=== PATIENT | female | born 1930 | race Caucasian/White ===

== ENCOUNTER 2016-05-27 21:53 | Inpatient (IN) | payer OTHER ==
[~2016-05-27] VITALS: Ht 152.4 cm; Wt 76.3 kg
--- NOTE | ~2016-05-27 | EKG ---
[place] [address] [facility] [place] [address] ELECTROCARDIOGRAM REPORT Name: CLAUS GARVEY Room #: 460-P ADM IN M.R.#: [id number] Admission: 05/27/16 Attend Phys: Elizabeth Miller MD Discharge: Date of : 32 Report #: [id number] THIS REPORT FOR: //name// [facility] ED Test Date: 2016-05-27 Test Time: 22:27:38 Pat Name: CLAUS GARVEY Department: Room: [facility] Gender: F Glaze Maker: [id number] : 1930 Requested By: Carla Bui Order Number: [id number] MD: Pj Freeman Measurements Intervals [place] Rate: 94 P: 141 VT: 161 QRS: -21 QRSD: 122 T: 154 QT: 351 QTc: 439 Interpretive Statements Sinus or ectopic atrial rhythm Left bundle branch block Compared to ECG 12/02/2015 12:24:38 probable limb lead reversal is now present Electronically Signed On 05-29-2016 9:04:31 [employer]RNAMENTAL MET[employer] WORK[employer] by Pj Freeman [email or web address] <ELECTRONICALLY SIGNED> By: Pj Freeman MD, [facility] 05/29/16 0904 26 26 Pj Freeman MD, [facility] /EPI
--- NOTE | ~2016-05-27 | H ---
[facility] [place] [address] HISTORY AND PHYSICAL Name: CLAUS GARVEY Room #: 460-P ADM IN M.R.#: [id number] Admission: 05/27/16 Attend Phys: Elizabeth Miller MD Discharge: Date of : 31 Report #: [id number] THIS REPORT FOR: //name// CC: Elizabeth Miller DATE OF SERVICE: 05/28/2016 CHIEF COMPLAINT: Altered mental status and respiratory distress. HISTORY OF PRESENT ILLNESS: The patient is an 85-year-old female who resides at [facility]. She has multiple medical issues including longstanding diabetes mellitus type 2, hypertension and dementia. Several days prior to admission, staff reported that she had not been eating well and we had to decrease her insulin. On the day of admission, she reportedly had decreased level of consciousness and hypoglycemia. She also had some rapid respirations. Given clinical findings, she was sent to [facility] for evaluation. In the emergency department, she was noted to be hypoglycemic with continued altered mental status and clinical findings of pneumonia with respiratory failure. She required BiPAP. She was given glucose and given IV antibiotics and admitted for further medical management. Since her arrival to the floor, she was given dextrose intravenously and her blood sugars are better at this time. PAST MEDICAL HISTORY: Diabetes mellitus type 2, chronic kidney disease stage 3, coronary artery disease with history of myocardial infarction, oropharyngeal dysphagia requiring pureed diet and honey thickened liquids, anemia of chronic disease, vitamin D deficiency, Alzheimer's dementia, constipation and hypothyroidism. ALLERGIES: No known drug allergies. MEDICATIONS: Actos 15 mg daily; aspirin 81 mg daily; atenolol 50 mg daily; Depakote 125 mg daily and 250 mg at bedtime; MiraLax 17 grams mixed in 8 ounces of water twice a day; Humulin 70/30, she was initially receiving 100 units in the morning and 25 units in the evening; ferrous sulfate 325 mg b.i.d.; Lasix 40 mg daily; Synthroid 88 mcg daily; vitamin D 50,000 units p.o. once a month. REVIEW OF SYSTEMS: Cannot be elicited at this time, however, she is well known to me. At baseline, she is able to feed herself. She requires assistance to transfer from bed to chair. She gets about the facility in a wheelchair. She is incontinent of bowel and bladder. She is forgetful due to her underlying dementia. She has had no problems with chest pains. Otherwise, respiratory symptoms as per history of present illness. PHYSICAL EXAMINATION: GENERAL: The patient is an elderly female [place] [address] HISTORY AND PHYSICAL Name: CLAUS GARVEY Room #: 460-P [facility] IN M.R.#: [id number] Admission: 05/27/16 Attend Phys: Elizabeth Miller MD Discharge: Date of : 31 Report #: [id number] machine. She moves all extremities at this time and tries to resist my exam; however, she does not obey commands. HEENT: Head is normocephalic, atraumatic. Pupils are reactive. Extraocular muscles were not assessed. Oropharynx is moist. NECK: Supple. Trachea midline. LUNGS: With bibasilar crackles. CARDIOVASCULAR: Regular rate and rhythm. ABDOMEN: Soft, nontender, nondistended with normoactive bowel sounds. SKIN: Warm and dry. Turgor adequate. LYMPHATICS: No cervical or axillary lymphadenopathy. NEUROLOGIC: She is lying in bed and her eyes closed, but moves upper extremities as she tries to resist exam and she has no other gross focal deficits. MUSCULOSKELETAL: Reveals equal and symmetric strength bilateral upper extremities and lower extremities. LABORATORY DATA: Pertinent labs include a BUN of 74, creatinine of 2.0, calcium 10.2, direct bilirubin 10.4, albumin 2.6. WBC is 11.9, ____ WBC reveals polys 84%, lymphocytes 12%. Urinalysis shows protein 2+, blood 2+, leukocytes 3+, squamous epithelial moderate, wbc's many, rbc's few, bacteria many. Arterial blood gas on nonrebreather reveals pH of 7.45, pCO2 of 29, pO2 of 54, oxygen saturation of 90%. Chest x-ray reveals developing bibasilar pneumonitis. CT scan of the head reveals no acute pathology, but noted diffuse moderate atrophy. ASSESSMENT: 1. Severe sepsis in patient who has leukocytosis, hypotension, lactic acidosis and toxic encephalopathy. 2. Acute respiratory failure. 3. Healthcare-acquired pneumonia. 4. Shock kidney with acute kidney injury. 5. Urinary tract infection. 6. Diabetes mellitus type 2. 7. Coronary artery disease with history of myocardial infarction. 8. Oropharyngeal dysphagia requiring pureed diet, honey thickened liquids prior to acute illness. 9. Anemia of chronic disease. 10. Vitamin D deficiency. 11. Alzheimer's dementia. 12. Hypothyroidism. PLAN: Admission to telemetry floor. We will consult pulmonary for management of BiPAP. We will continue vancomycin and Zosyn. We will order SCDs for DVT prophylaxis as well as IV famotidine for GI prophylaxis. She will need to be seen by speech therapy to determine a safe diet once she is more alert. Note, her daughter/durable power of floor coverings salesperson is at bedside. All questions were [address] [address] HISTORY AND PHYSICAL Name: CLAUS GARVEY Room #: 460-P ADM IN .R.#: [id number] Admission: 05/27/16 Attend Phys: Elizabeth Miller MD Discharge: Date of : 31 Report #: [id number] answered and confirmed. CODE STATUS: DNR established outside the hospital. <ELECTRONICALLY SIGNED> By: Elizabeth Miller MD 06/05/16 1732 1521 1615 Elizabeth Miller MD /nt
--- NOTE | ~2016-05-27 | HC ---
[facility] [place] [address] CONSULTATION Name: CLAUS GARVEY Room #: 460-P ADM IN M.R.#: [id number] Admission: 05/27/16 Attend Phys: Elizabeth Miller MD Discharge: Date of : 31 Report #: [id number] THIS REPORT FOR: //name// CC: Elizabeth Tsai MD REFERRING PHYSICIAN: Dr. Elizabeth Miller. REASON FOR REFERRAL: Acute respiratory failure. HISTORY OF PRESENT ILLNESS: The patient is an 85-year-old white female who was brought to the Emergency Room with altered mental status. She was found to be hypoglycemic. Chest x-ray revealed right-sided infiltrates. A pulmonary consultation was requested. [facility]. She has progressive Alzheimer's dementia. She was last hospitalized in 2013 for leg pain. She was found to have anasarca, bilateral pleural effusion along with acute kidney injury. The patient is primarily bedridden. She mourns when she is moved. The patient is currently on noninvasive ventilation. Her saturation is adequate on this setting. Otherwise, history is limited as the patient is not able to provide history. PAST MEDICAL HISTORY: Is remarkable for Alzheimer's dementia, generalized debility, weakness, diabetes mellitus type 2, hypertension, gastroesophageal reflux disease, hypothyroidism, atrial fibrillation, gastroesophageal reflux disease, past history of urinary tract infections, glaucoma. PAST SURGICAL HISTORY: None noted. ALLERGIES: None to medications. MEDICATIONS: From the prison are reviewed. This includes ciprofloxacin, Synthroid, Actos, aspirin, vitamin D supplements, Tenormin, insulin supplements, Xalatan eyedrops and Lasix. FAMILY HISTORY: Noncontributory. SOCIAL HISTORY: The patient resides at [facility]. There is no history of tobacco or alcohol use. Medical directive, she is a DNR. She has family who lives in town. REVIEW OF SYSTEMS: Deferred as the patient is not able to provide much answers given progressive dementia. [facility] [address] [place] [address] CONSULTATION Name: CLAUS GARVEY Room #: 460-P [facility] IN ..#: [id number] Admission: 05/27/16 Attend Phys: Elizabeth Miller MD Discharge: Date of : 31 Report #: [id number] PHYSICAL EXAMINATION: GENERAL: She is awake in moderate distress, while being removed. She is tolerating noninvasive ventilation. VITAL SIGNS: Temperature is 98 degrees Fahrenheit, pulse is 80, respiratory rate is 22, blood pressure is 120/52 mmHg, saturation 100%. HEENT: Normocephalic, atraumatic. NECK: Supple without any lymphadenopathy or thyromegaly. CHEST: Breath sounds are fair, coarse breath sounds bilaterally. Few scattered crackles in the bases. CARDIOVASCULAR: Normal S1, S2. Heart sounds are distant. No obvious murmurs or gallop. Pulses are 2+/4 positive bilaterally. BREASTS: Exam deferred. ABDOMEN: Soft, no masses felt. GENITOURINARY: Deferred. RECTAL: Deferred. EXTREMITIES: No cyanosis, clubbing, edema. LABORATORY DATA: Chest x-ray shows right lower lobe infiltrates. CT head shows diffuse moderate atrophy, otherwise unremarkable. Electrolytes: Sodium 138, potassium 4.4, chloride 101, CO2 is 25, BUN is 74, creatinine is 2.0, glucose is 72, patient's baseline creatinine is around 2. WBC is 11,900, hemoglobin is 19.9. No significant bandemia. Platelets are normal. Albumin 2.6. Arterial blood gas revealed pH 7.45, pCO2 of 28, pO2 of 54. IMPRESSION: 1. Acute hypoxic respiratory failure in this 85-year-old white female. Chest x-ray revealed right lower lobe infiltrates. Pneumonia is suspected. Nosocomial pneumonia should be considered. The patient is also at risk for possible aspiration pneumonia. 2. Chronic kidney disease. 3. Protein calorie malnutrition, severe with albumin 2.6. 4. Diabetes mellitus type 2. 5. Progressive Alzheimer's dementia. 6. Gastroesophageal reflux disease. 7. Hypertension. 8. Hypothyroidism. 9. History of atrial fibrillation with current EKG showing left bundle branch block without evidence of atrial fibrillation. 10. Progressive debility and weakness. RECOMMENDATION: Agree with current treatment plans including broad spectrum antibiotics to cover for nosocomial infections and possible aspiration pneumonia. DVT and GI prophylaxis will be addressed. We will continue noninvasive ventilation for now. Wean O2 for saturation 90%. If, however, the patient appears to be suffering given the code status, I would recommend comfort measures with morphine. [address] [address] CONSULTATION Name: MARECLAUS M Room #: 460-P [facility] IN M.R.#: [id number] Admission: 05/27/16 Attend Phys: Elizabeth Miller MD Discharge: Date of : 31 Report #: [id number] We will complete approximately a 7-10-day course of antibiotics. We will need to address nutritional status over the course of the next several days. If the patient remains on noninvasive ventilation, we will need to consider either TPN or PPN. Thank you for this consultation. <ELECTRONICALLY SIGNED> By: Hector Tsai MD 06/01/16 1433 1601 1957 Hector Tsai MD /nt
[~2016-05-27 21:53] MED LIST: ACTOS 45 MG45 M1 PO; ALPHAGAN P10 ML OPHTHALMIC; ATENOLOL 50MG T50 M1 PO; BAYER CHEWABLE81 MG PO; CIPRO250 M1 PO; CIPRO500 MG PO; DEPAKOTE 250MG250 M1 PO; HYDRALAZINE 10M10 MG PO; HYDRALAZINE 2525 MG PO; KEFLEX500 M1 PO; KLOR-CON 1010 MEQ PO; LANOXIN 0.120.125 M1 PO; LANTANOPROST; LANTUS100 UNIT/M SUBQ; LASIX 40 MG TAB40 M2 PO; LEVOTHYROXIN0.088 MG PO; LISINOPRIL20 MG PO; NOVOLOG100 UNIT/1 SUBQ; SIMVASTATIN10 MG PO; TYLENOL325 MG PO; VITAMIN D 5050000 I1 PO; XALATAN2.5 ML OPHTHALMIC; ZESTRIL40 MG PO
[2016-05-27 22:13] LABS: ABSOLUTE NEUTROPHILS 10.1 thou/uL (1.4-8.2); BASOPHILS 0.3 % (0.0-2.0); EOSINOPHILS 0.2 % (0.0-3.0); HEMATOCRIT 35.9 % (37.0-47.0); HEMOGLOBIN 11.9 gm/dL (12.0-15.0); LYMPHOCYTES 12.5 % (24.0-44.0); MCH 32.2 pg (26.0-34.0); MCHC 33.2 g/dL (28.0-37.0); MCV 97.1 fL (80.0-100.0); MONOCYTES 2.5 % (1.0-8.0); PLATELET COUNT 394 thou/uL (150-400); POLYS 84.5 % (36.0-66.0); RDW 14.7 % (10.5-14.5); WBC 11.9 thou/uL (4.0-11.0)
[2016-05-27 22:15] LABS: MANUAL DIFF NO
[2016-05-27 22:17] LABS: CALCIUM 10.2 mg/dL (8.5-10.1); POTASSIUM 4.4 mmol/L (3.5-5.1)
[2016-05-27 22:27] LABS: ABG SAMPLE TYPE ARTERIAL; BE(vivo) -2.9 mmol/L (-2 to +3); HCO3 19.9 mmol/L (22.0-26.0); O2(CT) 15.9 mL/dL (15.0-23.0); O2Hb 87.7 % (92.0-98.0); PCO2 28.9 mmHg (35.0-45.0); pH 7.455 (7.360-7.450); sO2 90.3 % (92.0-98.0); tCO2 20.7 mmol/L (24.0-30.0)
[2016-05-27 22:28] LABS: LACTATE 4.69 mmol/L (0.5-2.0); PO2 54.4 mmHg (80.0-100.0); STICK SITE R.BRACHIAL
[2016-05-27 23:30] LABS: URINE BILIRUBIN NEGATIVE (Negative); URINE BLOOD 2+ (Negative); URINE COLOR YELLOW; URINE GLUCOSE-RANDOM* NEGATIVE (Negative); URINE KETONES NEGATIVE (Negative); URINE NITRITE NEGATIVE (Negative); URINE PROTEIN (DIPSTICK) 2+ (Negative); URINE SPECIFIC GRAVITY 1.015 (1.003-1.035); URINE UROBILINOGEN 0.2 E.U./dl (0.2-1.0)
[2016-05-27 23:38] LABS: ALBUMIN 2.6 g/dL (3.4-5.0); DIRECT BILIRUBIN 0.4 mg/dL (<0.1-0.3); TOTAL BILIRUBIN 0.9 mg/dL (<0.1-1.0); TOTAL PROTEIN 8.6 g/dL (6.4-8.2)
[2016-05-28 00:03] LABS: BACTERIA >30 Many /HPF (None Seen); CASTS None Seen /LPF (None Seen); CRYSTALS None Seen /LPF (None Seen); SQUAMOUS 4-10 Moderate /LPF (0-3); URINE WBC >25 Many /HPF (0-5)
[2016-05-28 00:04] LABS: URINE RBC 3-10 Few /HPF (0-2)
[2016-05-29 06:01] LABS: HEMATOCRIT 22.9 % (37.0-47.0); MCH 32.2 pg (26.0-34.0); MCHC 32.9 g/dL (28.0-37.0); MCV 97.9 fL (80.0-100.0); RBC 2.34 mil/uL (4.20-5.00); RDW 14.3 % (10.5-14.5); WBC 16.9 thou/uL (4.0-11.0)
[2016-05-29 06:12] LABS: CALCIUM 8.4 mg/dL (8.5-10.1); POTASSIUM 4.3 mmol/L (3.5-5.1)
[2016-05-29 06:42] LABS: HEMOGLOBIN 7.5 gm/dL (12.0-15.0)
[2016-05-29 11:01] LABS: % SATURATION 12 % (20-39); IRON 23 ug/dL (50-170); TIBC 194 ug/dL (250-450); UIBC 171 ug/dL
[2016-05-29 11:18] LABS: FOLIC ACID 7.6 ng/mL (8.6-58.9)
[2016-05-30 03:16] LABS: 25-HYDROXY TOTAL 35.7 ng/mL (30.0-100.0)
[2016-05-30 06:09] LABS: HEMATOCRIT 23.6 % (37.0-47.0); HEMOGLOBIN 7.6 gm/dL (12.0-15.0); MCH 32.1 pg (26.0-34.0); MCHC 32.4 g/dL (28.0-37.0); MCV 99.2 fL (80.0-100.0); RBC 2.38 mil/uL (4.20-5.00)
[2016-05-31 09:47] LABS: APTT 37.3 Seconds (24.5-32.8); INR 1.9; PROTIME 20.2 Seconds (9.3-11.4)
[2016-05-31 18:43] LABS: ABG SAMPLE TYPE ARTERIAL; BE(vivo) -3.3 mmol/L (-2 to +3); HCO3 20.2 mmol/L (22.0-26.0); LACTATE 2.33 mmol/L (0.5-2.0); O2(CT) 11.9 mL/dL (15.0-23.0); O2Hb 87.9 % (92.0-98.0); PCO2 30.8 mmHg (35.0-45.0); PO2 53.8 mmHg (80.0-100.0); pH 7.435 (7.360-7.450); sO2 89.5 % (92.0-98.0); tCO2 21.2 mmol/L (24.0-30.0)
[2016-05-31 18:44] LABS: STICK SITE R.BRACHIAL
[2016-05-31 19:09] LABS: ABSOLUTE NEUTROPHILS 6.9 thou/uL (1.4-8.2); BASOPHILS 0.3 % (0.0-2.0); EOSINOPHILS 1.2 % (0.0-3.0); HEMATOCRIT 25.9 % (37.0-47.0); HEMOGLOBIN 8.1 gm/dL (12.0-15.0); LYMPHOCYTES 11.6 % (24.0-44.0); MCH 32.4 pg (26.0-34.0); MCHC 31.4 g/dL (28.0-37.0); MCV 103.2 fL (80.0-100.0); MONOCYTES 4.6 % (1.0-8.0); PLATELET COUNT 173 thou/uL (150-400); POLYS 82.3 % (36.0-66.0); RDW 15.2 % (10.5-14.5); WBC 8.4 thou/uL (4.0-11.0)
[2016-05-31 19:11] LABS: MANUAL DIFF NO
[2016-05-31 19:14] LABS: CALCIUM 8.3 mg/dL (8.5-10.1); CREATININE 1.7 mg/dL (0.6-1.3)
[2016-05-31 19:19] LABS: TOTAL PROTEIN 5.9 g/dL (6.4-8.2)
[2016-06-01 05:51] LABS: ABSOLUTE NEUTROPHILS 8.4 thou/uL (1.4-8.2); BASOPHILS 0.3 % (0.0-2.0); EOSINOPHILS 1.4 % (0.0-3.0); HEMATOCRIT 22.8 % (37.0-47.0); HEMOGLOBIN 7.5 gm/dL (12.0-15.0); LYMPHOCYTES 10.8 % (24.0-44.0); MCH 32.8 pg (26.0-34.0); MCHC 32.8 g/dL (28.0-37.0); MCV 99.8 fL (80.0-100.0); PLATELET COUNT 149 thou/uL (150-400); POLYS 82.5 % (36.0-66.0); RBC 2.29 mil/uL (4.20-5.00); RDW 14.9 % (10.5-14.5); WBC 10.2 thou/uL (4.0-11.0)
[2016-06-01 05:56] LABS: MANUAL DIFF NO
[2016-06-01 06:09] LABS: ALBUMIN 1.8 g/dL (3.4-5.0); CALCIUM 8.2 mg/dL (8.5-10.1); CREATININE 1.6 mg/dL (0.6-1.3); POTASSIUM 3.9 mmol/L (3.5-5.1); TOTAL PROTEIN 6.1 g/dL (6.4-8.2)
[2016-06-01 12:31] LABS: ERYTHROPOIETIN 39.7 mIU/mL (2.6-18.5)
[2016-06-01 12:38] LABS: ABG SAMPLE TYPE ARTERIAL; BE(vivo) -6.4 mmol/L (-2 to +3); HCO3 17.9 mmol/L (22.0-26.0); O2(CT) 10.8 mL/dL (15.0-23.0); O2Hb 92.6 % (92.0-98.0); PCO2 30.7 mmHg (35.0-45.0); PO2 70.5 mmHg (80.0-100.0); STICK SITE R.BRACHIAL; pH 7.383 (7.360-7.450); sO2 94.2 % (92.0-98.0); tCO2 18.8 mmol/L (24.0-30.0)
[2016-06-02 05:39] LABS: HEMATOCRIT 23.6 % (37.0-47.0); HEMOGLOBIN 7.7 gm/dL (12.0-15.0); MCH 32.8 pg (26.0-34.0); MCHC 32.5 g/dL (28.0-37.0); MCV 100.9 fL (80.0-100.0); RBC 2.34 mil/uL (4.20-5.00); RDW 15.1 % (10.5-14.5); WBC 10.8 thou/uL (4.0-11.0)
[2016-06-02 05:49] LABS: PROTIME 33.5 Seconds (9.3-11.4)
[2016-06-02 05:55] LABS: % SATURATION 23 % (20-39); IRON 41 ug/dL (50-170); TIBC 179 ug/dL (250-450); UIBC 138 ug/dL
[2016-06-02 05:56] LABS: CALCIUM 8.3 mg/dL (8.5-10.1); POTASSIUM 3.5 mmol/L (3.5-5.1)
[2016-06-02 05:58] LABS: INR 3.2
[2016-06-04 05:24] LABS: HEMATOCRIT 24.6 % (37.0-47.0); HEMOGLOBIN 8.2 gm/dL (12.0-15.0); MCHC 33.2 g/dL (28.0-37.0); MCV 99.4 fL (80.0-100.0); RBC 2.48 mil/uL (4.20-5.00); RDW 14.7 % (10.5-14.5)
[2016-06-04 05:35] LABS: CALCIUM 8.1 mg/dL (8.5-10.1); CREATININE 1.7 mg/dL (0.6-1.3); POTASSIUM 3.4 mmol/L (3.5-5.1)
[2016-06-05] MEDS ORDERED: MSL20MG/ML SUBLING (09:32)
[2016-06-05] MEDS ORDERED: LORAZEPAM I2 MG/1 M2 SUBLING (09:32)
== END 2016-06-05 19:22 | disposition hospice, home (50) | DRG 871 ==
LOC: ER 21:53 → 4W 23:05 → EROBS 23:05 → 4W 23:59
PROVIDERS: Emergency Medicine; Internal Medicine; Internal Medicine Pulmonary Disease
PROC: 5A09557 Assistance with Respiratory Ventilation, Greater than 96 Consecutive Hours, Continuous Positive Airway Pressure (ICD-10-PCS; principal; 2016-05-27)
DX: A41.9 Sepsis, unspecified organism (principal); J18.9 Pneumonia, unspecified organism; E43 Unspecified severe protein-calorie malnutrition; N17.0 Acute kidney failure with tubular necrosis; J96.01 Acute respiratory failure with hypoxia; G92 Toxic encephalopathy; N39.0 Urinary tract infection, site not specified; D62 Acute posthemorrhagic anemia; E87.0 Hyperosmolality and hypernatremia; G30.9 Alzheimer's disease, unspecified; I12.9 Hypertensive chronic kidney disease with stage 1 through stage 4 chronic kidney disease, or unspecified chronic kidney disease; Z51.5 Encounter for palliative care; Z66 Do not resuscitate; F02.80 Dementia in other diseases classified elsewhere, unspecified severity, without behavioral disturbance, psychotic disturbance, mood disturbance, and anxiety; K21.9 Gastro-esophageal reflux disease without esophagitis; E03.9 Hypothyroidism, unspecified; I48.91 Unspecified atrial fibrillation; H40.9 Unspecified glaucoma; E11.22 Type 2 diabetes mellitus with diabetic chronic kidney disease; I44.7 Left bundle-branch block, unspecified; N18.3 Chronic kidney disease, stage 3 (moderate); R65.20 Severe sepsis without septic shock; I25.10 Atherosclerotic heart disease of native coronary artery without angina pectoris; D63.8 Anemia in other chronic diseases classified elsewhere; E55.9 Vitamin D deficiency, unspecified; R13.12 Dysphagia, oropharyngeal phase; E86.9 Volume depletion, unspecified; Z68.32 Body mass index [BMI] 32.0-32.9, adult; I25.2 Old myocardial infarction
CPT/HCPCS: 10045